=== PATIENT | male | born 1985 | race Two or more races ===

== ENCOUNTER 2017-01-16 16:15 | Emergency (ER) | payer BC ==
[~2017-01-16] VITALS: Ht 177.8 cm; Wt 79.4 kg
[2017-01-16 16:15] VITALS: BP 150/87
[2017-01-16] MEDS ORDERED: LIDOCAINE 1%-EPI 1:100,000 50 ML VIAL IJ ONE (16:30)
[2017-01-16] MEDS ORDERED: HYDROCODONE/APAP 5/325MG 1 EACH TABLET PO ONE (16:30)
[2017-01-16] MEDS ORDERED: HYDROCODONE/APAP 5/325MG 1 EACH TABLET ONE (16:44)
[2017-01-16] MEDS ORDERED: ONDANSETRON 4 MG TAB.RAPDIS ONE (16:58)
[2017-01-16] MEDS ORDERED: LIDOCAINE 1%-EPI 1:100,000 20 ML VIAL ONE (17:05)
== END 2017-01-16 17:55 | disposition home or self-care (01) ==
LOC: ER 16:16
DX: L02.414 Cutaneous abscess of left upper limb (principal); L02.413 Cutaneous abscess of right upper limb; F17.200 Nicotine dependence, unspecified, uncomplicated
CPT/HCPCS: A4606; A6402; A6403; J3490; Q0162; Z7610